=== PATIENT | male | born 1995 | race Caucasian/White ===

== ENCOUNTER 2024-10-12 06:12 | Day surgery (SDC) | payer MEDICARE, OTHER ==
[~2024-10-12 06:12] MED LIST: Ketamine (HIGH CONC) for PREOP 5 ML VIAL IM PRN; LACTATED RINGERS 1,000 ML IV SCH; metroNIDAZOLE-NS PMX 500 MG in SALINE 1 100ML.BAG IVPB PRN
[2024-10-12] MEDS ORDERED: Ketamine (HIGH CONC) for PREOP 5 ML VIAL IM PRN (06:48)
[2024-10-12] MEDS: Ketamine (HIGH CONC) for PREOP 5 ML VIAL IM PRN (07:01)
[2024-10-12 07:08] VITALS: TEMP 97.8
[2024-10-12] MEDS: IV FLUID CONTINUATION 1,000 ML IV ONE (07:15)
[2024-10-12] MEDS ORDERED: HYDROmorphone (PF) 1 MG/ML ONE (07:32)
[2024-10-12] MEDS ORDERED: SUCCINYLCHOLINE CHLORIDE 200 MG/10 ML VIAL IV ONE (07:32)
[2024-10-12] MEDS ORDERED: fentaNYL (PF) 50 MCG/ML 2 ML AMP ONE (07:32)
[2024-10-12] MEDS ORDERED: DEXAMETHASONE SOD PHOSPHATE 4 MG/ML 1 ML VIAL ONE (07:32)
[2024-10-12] MEDS ORDERED: ONDANSETRON 4 MG/2 ML VIAL ONE (07:32)
[2024-10-12] MEDS ORDERED: LIDOCAINE 1% INJ 10MG/ML (20 ML MDV) ONE (07:32)
[2024-10-12] MEDS ORDERED: ePHEDrine 50 MG/ML 1 ML VIAL ONE (07:32)
[2024-10-12] MEDS ORDERED: PROPOFOL 10 MG/ML 20 ML VIAL IV ONE (07:32)
[2024-10-12] MEDS: LIDOCAINE 2%-EPI 1:100,000 20 ML VIAL SUBMUCOSAL ONE ×2 (08:05)
[2024-10-12 08:35] LABS: HCT 39.3 % (39.6-50.0); HGB 13.8 g/dL (13.0-17.0); Immature Platelet Fraction 4.8 % (1.1-6.1); MCH 29.1 pg (27.0-32.0); MCHC 35.1 g/dL (32.0-37.0); MCV 82.9 fL (80.0-97.0); Platelet Count 122 10*3/uL (140-440); RBC 4.74 10*6/uL (4.40-5.60); RDW 12.9 % (11.5-14.5); WBC 6.83 10*3/uL (4.50-10.00)
[2024-10-12] MEDS: LACTATED RINGERS 1,000 ML IV ONE (08:45)
[2024-10-12 08:58] LABS: ALT 86 U/L (4-49); AST 49 U/L (17-59); African American GFR (CKD) >90 (>60 ml/min/1.73 sqM); Albumin 4.0 g/dL (3.5-5.0); Alkaline Phosphatase 45 U/L (38-126); Anion Gap 12 mmol/L; Blood Urea Nitrogen 11 mg/dL (9-20); Calcium 9.0 mg/dL (8.4-10.2); Carbon Dioxide 22 mmol/L (22-30); Chloride 106 mmol/L (98-107); Glucose 141 mg/dL (74-99); Non-African American GFR(CKD) >90 (>60 ml/min/1.73 sqM); Potassium 4.2 mmol/L (3.5-5.1); Sodium 140 mmol/L (137-145); Total Protein 6.5 g/dL (6.3-8.2)
[2024-10-12 12:20] VITALS: RESP 14
[2024-10-12 12:37] VITALS: BP 106/76; PULSE 98
--- NOTE | 2024-10-12 15:14 | OP ---
OPERATIVE REPORT DATE OF SERVICE : 10/12/2024 PREOPERATIVE DIAGNOSES: 1. Carious teeth. 2. Abscessed teeth. 3. Pericoronitis. 4. Periodontal disease. POSTOPERATIVE DIAGNOSES: 1. Carious teeth. 2. Abscessed teeth. 3. Pericoronitis. 4. Periodontal disease. PROCEDURE: Surgical extraction of teeth numbers 1, 3, 4, 5, 6, 11, 12, 13, 14, 16, 18, 19 and 31. ANESTHESIA: General via oral endotracheal intubation. ESTIMATED BLOOD LOSS: 5 mL. DRAINS: None. COMPLICATIONS: None. SPECIMENS: None. INDICATIONS FOR PROCEDURE: The patient is a 29-year-old male, who has Asperger's syndrome, who is referred for the extraction of multiple teeth. The patient has developmental delays and presented with his mother. The risks, benefits, and alternatives of the procedure were reviewed with them at length and all the questions answered to their satisfaction. PROCEDURE IN DETAIL: The patient was taken to the operating room, placed on the operating table in the supine position. Next, he was induced via the IV route. He was then intubated orally and a general plane of anesthesia was maintained throughout the operative course. The surgeon approached the operative field and the patient was prepped and draped in usual manner for this procedure. Next, a throat pack was placed notifying both Nursing and Anesthesia. Next, approximately 10 mL of 2% lidocaine with 1:100,000 parts of epinephrine was used to infiltrate around the teeth with interest in addition to an inferior alveolar nerve block and buccal block bilaterally. Attention was then directed to the lower right where a 15-blade was utilized to develop an envelope flap and teeth numbers 31 and 32 were removed following a significant bone removal and elevator and forcep delivery. The wound was irrigated thoroughly. Gel-Foam was placed and the flap was reapproximated utilizing 3-0 cut. Attention was then directed to the maxilla where a similar technique was utilized to remove teeth numbers 1, 3.4, 5, and 6. The wounds were irrigated and packed with Gel-Foam and was reapproximated with 3-0 chromic cut. Attention was then directed to the upper left quadrant where similar technique was utilized to remove teeth numbers 11, 12, 13, 14 and 16. Finally, attention was directed into the lower left posterior quadrant where a 15-blade was utilized to develop an envelope flap and teeth numbers 18 and 19 were removed after being sectioned. An elevator forceps technique was utilized. Tooth #17 was left behind. There was a complete bony impaction with very poor access surgically. The wound was irrigated thoroughly and packed with Gel-Foam and the flap reapproximated with 3-0 chromic cut. The patient tolerated the procedure well without complications. The throat pack was removed notifying both Nursing and Anesthesia. MMODL / IJN: [id number] /
== END 2024-10-12 12:55 | disposition home or self-care (01) ==
LOC: OR 06:12
PROVIDERS: ATTEND Dentist Oral and Maxillofacial Surgery
DX: K02.9 Dental caries, unspecified (principal); K04.7 Periapical abscess without sinus; K05.30 Chronic periodontitis, unspecified; F84.5 Asperger's syndrome; F41.9 Anxiety disorder, unspecified; Z79.899 Other long term (current) drug therapy
CPT/HCPCS: 80053; 85027; 41899; J0330; J1100; J0690; J2405; J2003; J3010; J1171; J2704